=== PATIENT | male | born 1955 | race Caucasian/White ===

== ENCOUNTER 2020-06-04 12:42 | Outpatient (REF) | payer MEDICARE, SELFPAY ==
[2020-06-04 20:58] LABS: Calculated LDL 100 mg/dL (<100); Cholesterol 183 mg/dL (<200); HDL Cholesterol 59 mg/dL (40-60); Triglyceride 120 mg/dL (<150)
== END 2020-06-04 13:02 ==
LOC: NCHCN 12:42
PROVIDERS: PCP Family Medicine; Visit Provider Family Medicine
DX: Z13.6 Encounter for screening for cardiovascular disorders (principal)
CPT/HCPCS: 80061

== ENCOUNTER → 2020-10-14 09:52 | Outpatient (BNVA) | payer MEDICARE, OTHER, SELFPAY | PROVIDERS: PCP Family Medicine; Referring Provider Family Medicine; Visit Provider Urology | DX: N40.1 Benign prostatic hyperplasia with lower urinary tract symptoms (principal); N28.1 Cyst of kidney, acquired; N43.3 Hydrocele, unspecified | CPT/HCPCS: 99203 ==

== ENCOUNTER 2020-10-20 03:28 | Outpatient (CLI) | payer MEDICARE, OTHER, SELFPAY ==
[2020-10-21 19:36] LABS: COVID-19 RT-PCR UVMMC Result Negative (Negative)
== END 2020-10-20 03:48 ==
PROVIDERS: PCP Family Medicine; Visit Provider Urology
DX: Z11.59 Encounter for screening for other viral diseases (principal); Z01.818 Encounter for other preprocedural examination
CPT/HCPCS: U0003

== ENCOUNTER 2020-10-23 09:44 | Day surgery (SDC) | payer MEDICARE, OTHER, SELFPAY ==
[2020-10-23 09:50] VITALS: BP 110/74; PULSE 80; RESP 18; TEMP 36.7; O2SAT 95
[2020-10-23] MEDS: Lactated Ringers 1,000 ML 80 ML IV (10:21)
--- NOTE | 2020-10-23 12:29 | W.PM.HP.N ---
Date of service: 10/23/20 Time of Service: 12:29 Assessment and Plan Assessment and plan (1) Left hydrocele: Status: Acute Assessment and plan: We will move forward with hydrocelectomy/spermatocelectomy (2) Spermatocele: Status: Acute History of Present Illness History of Present Illness Chief Complaint: Hydrocele Narrative: This is a 65-year-old gentleman who has a history of a left scrotal mass. He was evaluated by the urology team at [facility] back in 2012. He recalls having had a scrotal ultrasound at that time. He was told he had a left hydrocele and that surgical treatment could be offered if and when it became symptomatic enough. He comes in now stating that his hydrocele has increased in size over the years. The hydrocele is now bothersome enough that he is interested in surgical treatment. He is fairly well versed in the procedure as it was previously discussed with him by Dr. Wesley. He does not recall any specific trauma to the left testis. He did have a left inguinal hernia repair previously. He has not seen any skin changes overlying the hydrocele. He recalls being told that he has a mass on the right kidney which sounds like it is a renal cyst. He tells me he is completely asymptomatic from this mass. No specific follow-up imaging was recommended after the cyst was identified. He has no family history of prostate cancer. The patient himself has no unexplained skeletal pain or weight loss. He gets up an average of once or twice a night to void. His AUA symptom score is 9 out of a possible 35. He has not gone into retention. He has no history of urinary tract infections or kidney stones. He has no known bleeding disorders. He has not had any issue with general anesthesia in the past. When we obtained the previous scrotal US report from [facility], the report mentioned both a hydrocele and spermatocele in the left hemiscrotum. Review of Systems Narrative: No fevers or chills No vision change or dysphasia No diabetes or thyroid No shortness of breath, cough or hemoptysis No chest pain or palpitations No nausea, vomiting, hepatitis, ulcers, jaundice, diarrhea or constipation No seizures, strokes or peripheral neuropathy No bleeding disorders or anemia No gout [facility] Medical History (Updated 10/23/20 @ 12:31 by Dieter Gant MD) Allergic rhinitis BPH loc w urin obs/LUTS Left hydrocele Peptic ulcer disease Surgical History History of hernia repair Social History Smoking/Tobacco Use Status: Never Smoking risk assessment performed?: Yes Alcohol Intake: never Substance use type: does not use Do you feel safe at home: Yes Do you feel safe in your relationship?: Yes Meds Home Medications and Allergies Home Medications Medication Instructions Recorded Confirmed Type lansoprazole 30 mg capsule,delayed 30 mg PO BID cap 06/09/20 10/23/20 History release Allergies Allergy/AdvReac Type Severity Reaction Status Date / Time No Known Allergies Allergy Unverified 10/23/20 10:02 Exam Const General: cooperative and no acute distress Neck Neck: supple Resp Effort & Inspection: normal respiratory effort Auscultation: clear to auscultation bilaterally Cardio Rate: regular rate Rhythm: regular rhythm GI Palpation: soft and no masses Other: diffusely enlarged, nontender left hemiscrotum Neuro General: patient alert, patient awake and patient oriented x3 Results Last Vital Signs Temp 36.7 C 10/23/20 09:50 Pulse 80 10/23/20 09:50 Resp 18 10/23/20 09:50 BP 110/74 10/23/20 09:50 Pulse Ox 95 10/23/20 09:50 COVID-19 Screening Have you, or household traveled for leisure in last 14 days?: No Had IN PERSON contact w/suspected or confirmed C-19 person: No
[2020-10-23] MEDS: ceFAZolin 1 GM/50 ML BAG IVPB (12:48)
[2020-10-23] MEDS: Bacitracin 30 GM TUBE (13:05)
[2020-10-23] MEDS: Bupivacaine 0.25% Pres-Free 30 ML VIAL (13:05)
--- NOTE | 2020-10-23 13:08 | SPERMATO_PTH ---
PATIENT: Jer Castillo V LOC: [facility] U#:[id number] AGE/SX: 65/M ROOM: RE10/23/[address]: Dieter Gant MD : 1955 BED: DIS: 10/23/2020 SPEC #: [id number] RECD: 10/23/20 17:07 STATUS: CONSTANZA RE #: [id number] MICAH: 10/23/20 13:[address]: Dieter Gant DEPT: Surgical Specimen RECD BY: Estephania Wilkinson ENTERED: 10/23/20 17:08 SP TYPE: SPERMATO OTHR DR: Herbie Ferreira Tissues: 1 - SPERMATOCELE Procedures: GROSS AND MICRO LEVEL 3 Comments: [id number]
--- NOTE | 2020-10-23 13:19 | W.PM.DSUDISC ---
Discharge Plan Disposition Patient Disposition: HOME Condition: Stable Discharge Details Reason For Visit: surgery Attending Provider: Dieter Gant Primary Care Provider: Herbie Ferreira Home Meds and New Rx's Prescriptions: No Action lansoprazole 30 mg capsule,delayed release(DR/EC) 30 mg PO BID RF: 0 Discharge Instructions Additional Instructions: OK to shower and remove dressing 10/23/2020 - then apply Bacitracin ointment daily Ice pack to scrotum for 48 hours (bag of frozen peas works well) F/U appt 1 to 2 weeks Activity:: no lifting over 10 pounds for 1 week Remove Dressings/Wound Care:: 24 hours Shower/Bathe:: 24 hours Diet:: As Tolerated Discharge Orders Discharge Orders: Discharge Order (Routine); Ordered 10/23/20 Ordered By: Dieter Gant DS: Diagnosis Discharge Diagnosis (1) Left hydrocele: Status: Acute (2) Spermatocele: Status: Acute
--- NOTE | 2020-10-23 13:25 | ROE_ITS ---
Date of service: 10/23/20 Time of Service: 13:26 Operative Note Operative Note DATE OF PROCEDURE: 10/23/20 PRE-OP DIAGNOSIS: 1. Left Hydrocele 2. Left Spermatocele POST-OP DIAGNOSIS: same PROCEDURE: Left hydrocelectomy Left spermatocelectomy SURGEON: Dieter Gant ANESTHESIA: other (general without intubation) ESTIMATED BLOOD LOSS: 25 PATHOLOGY: other (spermatocele sac) COMPLICATIONS: None Patient was transported to: same day Patient's condition: stable Indications: This is a 65-year-old gentleman who has a history of a left scrotal mass. In the past, he has been evaluated by the providers at [facility]. He was told he had a hydrocele and that the lesion could be treated surgically if and when it became bothersome enough. He tells me that the mass has now increased in size and is becoming uncomfortable. He is interested in surgical treatment. We were able to obtain the record of his scrotal ultrasound from [facility] in 2012. The ultrasound documented a large spermatocele with only a small hydrocele. Findings: Small left hydrocele Large left spermatocele Procedure Description: The patient was brought to the operating room on 10/23/2020. He was placed in the supine position. His genitalia was prepped and draped. The left scrotal field block was performed using quarter percent Marcaine without epinephrine. A transverse left-sided scrotal incision was made and extended down through the subcutaneous fat until the dartos muscle was identified. The dartos was divided and the left testis was then delivered into our incision. There appeared to be a very small left hydrocele. The hydrocele sac was opened anteriorly and a small amount of fluid was drained. A large left spermatocele was then identified and was dissected free from the left epididymis using sharp and blunt dissection. There was a very narrow point of attachment between the spermatocele sac and the epididymis. This point of attachment was divided with Bovie. Any bleeding points that were encountered were then cauterized. The hydrocele sac was everted behind the left testis and the edges of the hydrocele sac were reapproximated with a simple interrupted 3-0 chromic suture. A spermatic cord block was then performed with quarter percent Marcaine. The left testis was delivered back within the left hemiscrotum. The dartos muscle was reapproximated with a running segment of 3-0 chromic suturing. The scrotal skin was then closed with simple interrupted 4-0 chromic sutures. Dermabond was applied to the incision site, followed by a fluff dressing and a scrotal support. The patient tolerated this procedure with no complications.
--- NOTE | 2020-10-23 13:28 | W.PM.DSUDISC ---
Discharge Plan Disposition Patient Disposition: HOME Condition: Stable Discharge Details Reason For Visit: surgery Attending Provider: Dieter Gant Primary Care Provider: Herbie Ferreira Home Meds and New Rx's Prescriptions: New tramadol 50 mg tablet 50 mg PO Q6H PRN (Reason: pain) Qty: 12 RF: 0 No Action lansoprazole 30 mg capsule,delayed release(DR/EC) 30 mg PO BID RF: 0 Discharge Instructions Additional Instructions: OK to shower and remove dressing 10/23/2020 - then apply Bacitracin ointment daily Ice pack to scrotum for 48 hours (bag of frozen peas works well) F/U appt 1 to 2 weeks Activity:: no lifting over 10 pounds for 1 week Remove Dressings/Wound Care:: 24 hours Shower/Bathe:: 24 hours Diet:: As Tolerated Discharge Orders Discharge Orders: Discharge Order (Routine); Ordered 10/23/20 Ordered By: Dieter Gant DS: Diagnosis Discharge Diagnosis (1) Left hydrocele: Status: Acute (2) Spermatocele: Status: Acute
[2020-10-23 13:57] VITALS: BP 99/63; PULSE 55; RESP 16; TEMP 36; O2SAT 96
== END 2020-10-23 14:43 | disposition home or self-care (01) ==
PROVIDERS: PCP Family Medicine; Visit Provider Urology
PROC: (CPT 55040; principal; 2020-10-23 11:00)
DX: N43.3 Hydrocele, unspecified (principal); N43.40 Spermatocele of epididymis, unspecified
CPT/HCPCS: 55040; 54840; NC; 88304; J0690; J1100; J1885; J2001; J2405

== ENCOUNTER → 2020-10-30 10:48 | Outpatient (BNVA) | payer MEDICARE, OTHER, SELFPAY | PROVIDERS: PCP Family Medicine; Referring Provider Family Medicine; Visit Provider Urology | DX: Z48.816 Encounter for surgical aftercare following surgery on the genitourinary system (principal); N43.41 Spermatocele of epididymis, single ==

== ENCOUNTER → 2020-11-07 16:18 | Outpatient (BNVA) | payer MEDICARE, OTHER, SELFPAY | PROVIDERS: PCP Family Medicine; Referring Provider Family Medicine; Visit Provider Urology | DX: N43.40 Spermatocele of epididymis, unspecified (principal); Z48.816 Encounter for surgical aftercare following surgery on the genitourinary system ==

== ENCOUNTER → 2020-11-11 10:52 | Outpatient (BNVA) | payer MEDICARE, OTHER, SELFPAY | PROVIDERS: PCP Family Medicine; Referring Provider Family Medicine; Visit Provider Urology | DX: Z48.816 Encounter for surgical aftercare following surgery on the genitourinary system (principal); N43.40 Spermatocele of epididymis, unspecified ==

== ENCOUNTER 2025-10-04 13:18 | Outpatient (REF) | payer MEDICARE, OTHER, SELFPAY ==
[2025-10-04 15:56] LABS: HCT 44.8 % (40.0-50.0); HGB 14.8 g/dL (13.5-17.5); MCH 30.9 pg (27.0-33.0); MCHC 33.0 % (32.0-36.0); MCV 94 fL (80-95); MPV 10.7 fL (8.0-11.0); Platelet Count 231 10^3/uL (130-400); RBC 4.79 10^6/uL (4.36-5.78); RDW 13.7 % (11.8-14.1); RDW-SD 47.8 fL; WBC 5.54 10^3/uL (4.4-10.8)
[2025-10-04 16:13] LABS: ALT 41 U/L (10-49); AST 33 U/L (<34); Albumin 4.4 g/dL (3.2-5.0); Alkaline Phosphatase 46 U/L (46-116); Anion Gap 8.7 mmol/L (3-11); BUN 17 mg/dL (9-23); Bilirubin, Total 1.0 mg/dL (0.2-1.2); CO2 27.3 mmol/L (20.0-31.0); Calcium 9.2 mg/dL (8.3-10.6); Chloride 106 mmol/L (98-107); Cholesterol 169 mg/dL (<200); Glucose 106 mg/dL (74-106); HDL Cholesterol 50 mg/dL (>or=40); Potassium 4.4 mmol/L (3.5-5.1); Sodium 142 mmol/L (136-145); Total Protein 7.0 g/dL (5.7-8.2)
[2025-10-04 16:44] LABS: Ferritin 99 ng/mL (11-307)
[2025-10-04 16:49] LABS: Hemoglobin A1C 5.6 % (<5.7)
== END 2025-10-04 13:19 | disposition home or self-care (01) ==
LOC: NCHCN 13:18
PROVIDERS: PCP Family Medicine
DX: Z13.220 Encounter for screening for lipoid disorders (principal); Z86.39 Personal history of other endocrine, nutritional and metabolic disease; Z13.1 Encounter for screening for diabetes mellitus
CPT/HCPCS: 80053; 80061; 85027; 82728; 83036